=== PATIENT | female | born 1955 | race African-American/Black ===

== ENCOUNTER 2018-07-20 10:09 | Emergency (ER) | payer OTHER ==
[~2018-07-20] VITALS: Ht 167.6 cm; Wt 88.9 kg
[~2018-07-20 10:09] MED LIST: ACET325T9 PO; AMLO10TA6 PO; AMLO5TAB7 PO; ASPI-630 PO; ATOR40TA59 PO; BACI28.43 TP; CARV12.52 PO; CLON0.1T PO; CLON0.2T PO; CLOP75TA PO; GLIP10TA13 PO; HYDR-2758 PO; INSU100I11 SQ; INSU100I13 SQ; INSU100I27 SQ; LACT1CAP19 PO; LEVO250T7 PO; LISI-130 PO; LISI1TAB7 PO; MECL12.52 PO; METF10007 PO; METF500T16 PO; Pantoprazole PO
[2018-07-20] MEDS ORDERED: IV NORMAL SALINE 1000ML BAG 1,000 ML IV SCH (10:49)
[2018-07-20] MEDS ORDERED: MECLIZINE HCL 12.5 MG TABLET. PO ONE (11:00)
[2018-07-20] MEDS ORDERED: ONDANSETRON PF 4 MG/2 ML VIAL. IV ONE (11:00)
--- NOTE | 2018-07-20 11:28 | RAD ---
CT HEAD WO CONTRAST Indication: DIZZINESS Exposure: One or more of the following individualized dose reduction techniques were utilized for this examination: 1. Automated exposure control 2. Adjustment of the mA and/or kV according to patient size 3. Use of iterative reconstruction technique. Comparison: June 13, 2018 Contrast: None FINDINGS: Posterior fossa is unremarkable. No evidence of acute intracranial hemorrhage or abnormal extra-axial fluid collection. No evidence of mass effect or midline shift. Low-attenuation in the white matter bilaterally is again identified. Dilatation of the ventricles and sulci compatible with atrophy. Somewhat greater dilatation of the right frontal horn. These findings are stable since prior exam. Visualized orbits are unremarkable. Visualized paranasal sinuses and mastoids are clear. No acute calvarial abnormality. Impression:Chronic findings as detailed above. Negative for acute intracranial hemorrhage or mass effect. No significant change. Electronically signed by: Parish Yang MD (07/20/2018 11:24 AM) [facility]
--- NOTE | 2018-07-20 11:45 | EKG ---
[facility] [address] [place] [address] Test Date: 2018-07-20 Test Time: 10:44:47 Pat Name: NAKITA SANTILLAN Department: Room: Gender: F Asic Engineer: : 1955 Requested By: CHELSIE HITCHCOCK Order Number: [id number] Reading MD: Maurice Caba MD Measurements Intervals [place] Rate: 98 P: 60 MS: 160 QRS: -15 QRSD: 72 T: 31 QT: 332 QTc: 426 Interpretive Statements SINUS RHYTHM Electronically Signed On 07-20-2018 14:33:17 CERTIFICATION ENGINEER by Maurice Caba MD
[2018-07-20 11:51] LABS: BASO % 1 % (0-3); EOS # 0.1 x10^3/uL (0.0-0.7); EOS % 1 % (0-3); HEMATOCRIT 35.4 % (36.0-47.0); HEMOGLOBIN 11.6 g/dL (12.0-15.5); LYMPH # 1.7 x10^3/uL (1.0-4.8); LYMPH % 24 % (24-48); MEAN CORPUSCULAR HEMOGLOBIN 29 pg (25-35); MEAN CORPUSCULAR HGB CONC 33 g/dL (31-37); MEAN CORPUSCULAR VOLUME 88 fL (79-100); MONO # 0.4 x10^3/uL (0.0-1.1); MONO % 6 % (0-9); NEUT # 4.9 x10^3uL (1.8-7.7); NEUT % 69 % (31-73); PLATELET COUNT 270 x10^3/uL (140-400); RED BLOOD COUNT 4.01 x10^6/uL (3.50-5.40); RED CELL DISTRIBUTION WIDTH 14.4 % (11.5-14.5); WHITE BLOOD COUNT 7.1 x10^3/uL (4.0-11.0)
[2018-07-20 11:58] LABS: CALCIUM 9.2 mg/dL (8.5-10.1); CREATININE 1.4 mg/dL (0.6-1.0); GFR 46.3; POTASSIUM 3.6 mmol/L (3.5-5.1)
[2018-07-20 12:04] LABS: ALBUMIN 3.4 g/dL (3.4-5.0); ALBUMIN/GLOBULIN RATIO 0.7 (1.0-1.7); MAGNESIUM 1.4 mg/dL (1.8-2.4); TOTAL BILIRUBIN 0.6 mg/dL (0.2-1.0); TOTAL PROTEIN 8.6 g/dL (6.4-8.2)
[2018-07-20 14:42] LABS: BILIRUBIN,URINE NEGATIVE (NEG); CLARITY,URINE CLEAR; COLOR,URINE YELLOW; NITRITE,URINE NEGATIVE (NEG); PH,URINE 5.5; PROTEIN,URINE 30 mg/dL (NEG-TRACE)
[2018-07-20] MEDS ORDERED: MAGNESIUM SULFATE 1GM 100 ML IV ONE (14:45)
[2018-07-20 14:54] LABS: BACTERIA,URINE FEW /HPF (0-FEW); RBC,URINE 0 /HPF (0-2); SQUAMOUS EPITHELIAL CELL,UR MOD /LPF
--- NOTE | 2018-07-20 14:57 | PHYS DOC ---
Past Medical History Past Medical History: Diabetes-Type II, Hypertension, Stroke Additional Past Medical Histor: STROKE X3, LEFT SIDED HEMIPARESIS Past Surgical History: Appendectomy, Hysterectomy Alcohol Use: None Drug Use: None Adult General Chief Complaint Chief Complaint: DIZZY/LIGHT HEADED [facility] HPI Patient is a 63-year-old female who presents with complaint of dizziness that had started a couple of days ago that she states at times feels like things are spinning and at times she just feels off balance. She denies any headache or visual changes. She does indicate that she has had some nausea associated with the dizziness. She denies any chest pain or shortness of breath. She also denies any abdominal pain. Patient states that symptoms are worsened with changing positions and turning her head quickly. Review of Systems Review of Systems Constitutional: Denies fever or chills [] Eyes: Denies change in visual acuity, redness, or eye pain [] Respiratory: Denies cough or shortness of breath [] Cardiovascular: No additional information not addressed in HPI [] GI: Denies abdominal pain. Positive nausea. [] Neurologic: Denies headache, focal weakness or sensory changes. Complains of dizziness. [] All other systems were reviewed and found to be within normal limits, except as documented in this note. Current Medications Current Medications Current Medications Medications (Trade) Dose Ordered Sig/[facility] Start Time Stop Time Status Last Admin Dose Admin Magnesium Sulfate/ Dextrose 100 ml @ 100 mls/hr 1X ONCE 07/20/18 14:45 07/20/18 15:44 Meclizine HCl (Antivert) 25 mg 1X ONCE 07/20/18 11:00 07/20/18 11:01 DC 07/20/18 11:57 25 MG Ondansetron HCl (Zofran) 4 mg 1X ONCE 07/20/18 11:00 07/20/18 11:01 DC 07/20/18 11:57 4 MG Sodium Chloride 1,000 ml @ 100 mls/hr Q10H 07/20/18 10:49 07/20/18 20:48 07/20/18 11:58 100 MLS/HR Allergies Allergies Allergies Coded Allergies Type Severity Reaction Last Updated Verified No Known Medication Allergies Allergy Unknown 11/05/15 Yes codeine Adverse Reaction Intermediate itching 11/03/15 Yes Physical Exam Physical Exam Constitutional: Well developed, well nourished, no acute distress, non-toxic appearance. [] HENT: Normocephalic, atraumatic, bilateral external ears normal, oropharynx moist, no oral exudates, nose normal. [] Eyes: PERRLA, EOMI, conjunctiva normal, no discharge. [] Neck: Normal range of motion, no tenderness, supple, no stridor. [] Cardiovascular:Heart rate regular rhythm, no murmur [] Lungs & Thorax: Bilateral breath sounds clear to auscultation [] Abdomen: Bowel sounds normal, soft, no tenderness, no masses, no pulsatile masses. [] Skin: Warm, dry, no erythema, no rash. [] Back: No tenderness, no CVA tenderness. [] Extremities: No tenderness, no cyanosis, no clubbing, ROM intact, no edema. [] Neurologic: Alert and oriented X 3, normal motor function, normal sensory function, no focal deficits noted. [] Psychologic: Affect normal, judgement normal, mood normal. [] Current Patient Data Vital Signs Vital Signs Date Time Temp Pulse Resp B/P (MAP) Pulse Ox O2 Delivery O2 Flow Rate FiO2 07/20/18 12:44 98 97 07/20/18 11:03 98.6 16 163/78 (106) Room Air 98.6 Lab Values Laboratory Tests Test 07/20/18 10:21 07/20/18 11:40 Urine Collection Type Unknown Urine Color Yellow Urine Clarity Clear Urine pH 5.5 Urine Specific [place] 1.015 Urine Protein 30 mg/dL (NEG-TRACE) Urine Glucose (UA) 100 mg/dL (NEG) Urine Ketones (Stick) Negative mg/dL (NEG) Urine Blood Negative (NEG) Urine Nitrite Negative (NEG) Urine Bilirubin Negative (NEG) Urine Urobilinogen Dipstick 1.0 mg/dL (0.2 mg/dL) Urine Leukocyte Esterase Negative (NEG) Urine RBC 0 /HPF (0-2) Urine WBC 1-4 /HPF (0-4) Urine Squamous Epithelial Cells Mod /LPF Urine Bacteria Few /HPF (0-FEW) Urine Mucus Mod /LPF White Blood Count 7.1 x10^3/uL (4.0-11.0) Red Blood Count 4.01 x10^6/uL (3.50-5.40) Hemoglobin 11.6 g/dL (12.0-15.5) L Hematocrit 35.4 % (36.0-47.0) L Mean Corpuscular Volume 88 fL (79-100) Mean Corpuscular Hemoglobin 29 pg (25-35) Mean Corpuscular Hemoglobin Concent 33 g/dL (31-37) Red Cell Distribution Width 14.4 % (11.5-14.5) Platelet Count 270 x10^3/uL (140-400) Neutrophils (%) (Auto) 69 % (31-73) Lymphocytes (%) (Auto) 24 % (24-48) Monocytes (%) (Auto) 6 % (0-9) Eosinophils (%) (Auto) 1 % (0-3) Basophils (%) (Auto) 1 % (0-3) Neutrophils # (Auto) 4.9 x10^3uL (1.8-7.7) Lymphocytes # (Auto) 1.7 x10^3/uL (1.0-4.8) Monocytes # (Auto) 0.4 x10^3/uL (0.0-1.1) Eosinophils # (Auto) 0.1 x10^3/uL (0.0-0.7) Basophils # (Auto) 0.0 x10^3/uL (0.0-0.2) Sodium Level 140 mmol/L (136-145) Potassium Level 3.6 mmol/L (3.5-5.1) Chloride Level 101 mmol/L (98-107) Carbon Dioxide Level 28 mmol/L (21-32) Anion Gap 11 (6-14) Blood Urea Nitrogen 27 mg/dL (7-20) H Creatinine 1.4 mg/dL (0.6-1.0) H Estimated GFR (Cockcroft-Gault) 46.3 BUN/Creatinine Ratio 19 (6-20) Glucose Level 246 mg/dL (70-99) H Calcium Level 9.2 mg/dL (8.5-10.1) Magnesium Level 1.4 mg/dL (1.8-2.4) L Total Bilirubin 0.6 mg/dL (0.2-1.0) Aspartate Amino Transferase (AST) 12 U/L (15-37) L Alanine Aminotransferase (ALT) 12 U/L (14-59) L Alkaline Phosphatase 81 U/L (46-116) Total Protein 8.6 g/dL (6.4-8.2) H Albumin 3.4 g/dL (3.4-5.0) Albumin/Globulin Ratio 0.7 (1.0-1.7) L Laboratory Tests 07/20/18 11:40 Laboratory Tests 07/20/18 11:40 EKG EKG [] Interpretation Time: EKG demonstrates normal sinus rhythm with rate of 98. Radiology/Procedures Radiology/Procedures [] Impressions: PROCEDURE: CT HEAD WO CONTRAST CT HEAD WO CONTRAST Indication: DIZZINESS Exposure: One or more of the following individualized dose reduction techniques were utilized for this examination: 1. Automated exposure control 2. Adjustment of the mA and/or kV according to patient size 3. Use of iterative reconstruction technique. Comparison: June 13, 2018 Contrast: None FINDINGS: Posterior fossa is unremarkable. No evidence of acute intracranial hemorrhage or abnormal extra-axial fluid collection. No evidence of mass effect or midline shift. Low-attenuation in the white matter bilaterally is again identified. Dilatation of the ventricles and sulci compatible with atrophy. Somewhat greater dilatation of the right frontal horn. These findings are stable since prior exam. Visualized orbits are unremarkable. Visualized paranasal sinuses and mastoids are clear. No acute calvarial abnormality. Impression:Chronic findings as detailed above. Negative for acute intracranial hemorrhage or mass effect. No significant change. Electronically signed by: Joesph Yang MD (07/20/2018 11:24 AM) Course & Med Decision Making Course & Med Decision Making Pertinent Labs and Imaging studies reviewed. (See chart for details) [] Dragon Disclaimer Dragon Disclaimer This electronic medical record was generated, in whole or in part, using a voice recognition dictation system. Departure Departure Impression: Primary Impression: Benign positional vertigo Additional Impression: Hypomagnesemia Disposition: 01 HOME, SELF-CARE Condition: STABLE Referrals: JOESPH CORONEL MD (PCP) Patient Instructions: Benign Positional Vertigo, Hypomagnesemia Scripts Meclizine Hcl (MECLIZINE HCL) 25 Mg Tablet 25 MG PO PRN TID PRN for DIZZINESS, #30 dizziness Prov: CHELSIE HITCHCOCK Jr. DO 07/20/18 Ondansetron Hcl (ZOFRAN) 4 Mg Tablet 4 MG PO PRN TID PRN for NAUSEA, #15 nausea/vomiting Prov: CHELSIE HITCHCOCK Jr. DO 07/20/18 Problem Qualifiers Primary Impression: Benign positional vertigo Laterality: unspecified laterality Qualified Codes: H81.10 - Benign paroxysmal vertigo, unspecified ear CHELSIE HITCHCOCK Jr. DO Jul 20, 2018 14:57
[2018-07-20 15:00] VITALS: BP 180/79
[2018-07-20] MEDS ORDERED: MECL25TA3 PO (15:14)
[2018-07-20] MEDS ORDERED: ONDA4TAB7 PO (15:14)
== END 2018-07-20 15:25 | disposition home or self-care (01) ==
LOC: ER 10:09
DX: H81.10 Benign paroxysmal vertigo, unspecified ear (principal); E83.42 Hypomagnesemia; E11.9 Type 2 diabetes mellitus without complications; I10 Essential (primary) hypertension; I69.959 Hemiplegia and hemiparesis following unspecified cerebrovascular disease affecting unspecified side; Z88.5 Allergy status to narcotic agent
CPT/HCPCS: 36415; 70450; 80053; 81001; 83735; 85025; 93005; 96361; 96365; 96375; 99284; J2405; J3475; J7030; J8597

== ENCOUNTER → 2018-08-19 | Outpatient (CLI) | payer OTHER ==
[2018-07-20 15:00] VITALS: BP 180/79
[~2018-08-19] MED LIST changes: +CARV12.511 PO; -CARV12.52 PO; -HYDR-2758 PO; +HYDR-2761 PO; +MECL25TA3 PO; +ONDA4TAB7 PO
--- NOTE | 2018-08-19 17:36 | RAD ---
KNEE RIGHT 2V History: RT KNEE PAIN X 2 MONTHS. NO KNOWN INJURY. Comparison: None are available No evidence of an acute fracture. No bone destruction. Joint spaces are grossly intact. There is some hypertrophy of the tibial tubercle appears chronic. Small cortical thickening or hypertrophy at the medial proximal tibia appears chronic and benign. Vascular calcifications. Small joint effusion. IMPRESSION: No acute bone abnormality. Small joint effusion. Electronically signed by: Parish Yang MD (08/19/2018 5:32 PM) [facility]
--- NOTE | 2018-08-21 10:34 | RAD ---
DATE: 08/19/2018 3:30 PM EXAM: DIGITAL SCREEN BILAT W/CAD HISTORY: routine screening evaluation. -New baseline COMPARISON: No prior imaging is available for comparison. Bilateral full field craniocaudal and mediolateral oblique images were obtained using digital technique. This study was interpreted with the benefit of Computerized Aided Detection (CAD ). Breast Density: The breast parenchyma shows scattered fibroglandular densities. Breast parenchyma level B. FINDINGS: Benign calcifications are present. No suspicious masses, microcalcifications or architectural distortion is present to suggest malignancy in either breast. The visualized axillae are unremarkable. IMPRESSION: No mammographic evidence of malignancy. BI-RADS CATEGORY: 2 BENIGN FINDING(S) RECOMMENDED FOLLOW-UP: 12M 12 MONTH FOLLOW-UP Annual screening mammography is recommended, unless clinically indicated sooner based on symptoms or change in physical exam. PQRS compliance statement: Patient information was entered into a reminder system with a target due date 08/19/2019 for the next mammogram. Mammography is a sensitive method for finding small breast cancers, but it does not detect them all and is not a substitute for careful clinical examination. A negative mammogram does not negate a clinically suspicious finding and should not result in delay in biopsying a clinically suspicious abnormality. "Our facility is accredited by the [employer] Mammography Program." MTDD
== END | disposition home or self-care (01) ==
LOC: MAMMO 13:29
PROVIDERS: ATTEND Family Medicine
DX: Z12.31 Encounter for screening mammogram for malignant neoplasm of breast (principal); M25.461 Effusion, right knee
CPT/HCPCS: 73560; 77067

== ENCOUNTER → 2019-04-13 | Outpatient (CLI) | payer OTHER ==
[~2019-04-13] MED LIST changes: -AMLO10TA6 PO; +AMLO10TA8 PO; +AMLO5TAB10 PO; -AMLO5TAB7 PO
--- NOTE | 2019-04-13 16:59 | RAD ---
Clinical indications: Malignant hypertension. Renal artery stenosis. Evaluation for renal scarring/atrophy. Chronic kidney disease stage III. . Findings: Duplex sonography including blandon scale and color flow and spectral waveform analysis of the renal arteries and veins was performed. The peak systolic flow velocity of the right main renal artery is: Proximal: Not visualized due to overlying bowel gas. Mid aspect: 49 cm/sec Distal: 84 cm/sec The peak systolic flow velocity of the left main renal artery is: Proximal: Not visualized due to overlying bowel gas. Midaspect: Not visualized due to overlying bowel gas. Distal: 106 cm/sec The peak systolic flow velocity of the abdominal aorta is 106 cm/sec. Therefore, the renal artery/aortic ratio on the right side is 0.78. Therefore, the renal artery/aortic ratio on the left side is 0.99. Color-Doppler flow is identified within the right main renal vein. Color-Doppler flow is identified within the left main renal vein. The longitudinal dimension of the right kidney is 10.2 cm. No hydronephrosis is seen. The right kidney is difficult to visualize due to patient's body habitus. There is a 8 mm stone within the mid aspect of the right kidney. The longitudinal dimension of the left kidney is 10.2 cm. No hydronephrosis is seen. The left kidney is difficult to visualize due to patient's body habitus. The average resistive index of the right kidney is 0.81. The average resistive index of the left kidney is 0.82. Urinary bladder is mildly distended and no intraluminal echodensities or masses are seen. Impression: 1. Difficulty visualizing the entire renal artery on both sides. No hemodynamically significant plaque formation or flow-limiting stenosis is seen within the areas that are visualized on either side. 2. No significant renal atrophy is seen on either side. No hydronephrosis. 3. Right renal stone. Electronically signed by: Al Menard MD (04/13/2019 4:56 PM) [place] [id number]
== END | disposition home or self-care (01) ==
LOC: US 15:25
PROVIDERS: ATTEND Internal Medicine Nephrology
DX: N20.0 Calculus of kidney (principal); I70.1 Atherosclerosis of renal artery; N32.89 Other specified disorders of bladder; I12.9 Hypertensive chronic kidney disease with stage 1 through stage 4 chronic kidney disease, or unspecified chronic kidney disease; N18.3 Chronic kidney disease, stage 3 (moderate)
CPT/HCPCS: 76770

== ENCOUNTER → 2019-06-14 | Day surgery (SDC) | payer OTHER ==
[~2019-06-14] MED LIST changes: +IV RINGERS,LACTATED 1000ML 1,000 ML IV ONE; +LIDOCAINE 2% PF 5 ML VIAL. ONE; +LISI1TAB20 PO; -LISI1TAB7 PO; +PROPOFOL 40 ML IV ONE
--- NOTE | 2019-06-14 14:06 | PDOC4 ---
PROCEDURE Procedure Colonoscopy/cold snare polypectomy Indication: Screening Meds: per anesthesia Findings: EMILY: normal --'Scope advanced to cecum. Mucosa normal throughout. Scattered diverticula, sigmoid. --8-10mm pedunculated polyp, descending, removed with cold snare. Internal hemorrhoids on retroflex. Exam otherwise normal. Bunny. well. IMP: Solitary polyp Diverticulosis Internal hemorrhoids. REC: Await path. Resume home meds and diet. F/u in 2 weeks. Repeat colonoscopy pending path. JOESPH SANTILLAN MD Jun 14, 2019 14:06
[2019-06-14 14:38] VITALS: BP 174/86
--- NOTE | 2019-06-15 11:07 | PATHOLOGY ---
[facility] Accession Number: [id number] . 01 Material submitted: . colon - DESCENDING COLON POLYP. Modifiers: descending . 01 Clinical history: . Screening . 02 Diagnosis: Colonic mucosa "descending colon polyp biopsy": - Tubular adenoma. - There is no evidence of high-grade dysplasia or malignancy. (SHA:ned; 06/15/2019) QMS 06/15/2019 0931 Local . 02 Electronically signed: . Mark Stanley MD, Pathologist NPI- [id number] . 01 Gross description: . Received in formalin labeled "iKshore Vickers, descending colon polyp," is a single segment of landeros soft tissue measuring 0.7 cm in maximum dimension. The specimen is entirely submitted in cassette A1. (TSD; 06/14/2019) TOB/TOB 06/14/20191957 Local . 02 Pathologist provided ICD-10: D12.4 . 02 CPT . 543648 Specimen Comment: A courtesy copy of this report has been sent to Specimen Comment: [phone], . Specimen Comment: Report sent to / DR AYOUB Specimen Comment: A duplicate report has been generated due to demographic updates. Performed at: 01 [facility] [place] [address], [place], [place] [id number] MD Von Bingham MD Phone: [phone] Performed at: 02 [facility] [address] [place], [place] [id number] MD Josesito Lewis MD Phone: [phone]
== END ==
LOC: ENDOS 12:23
PROVIDERS: ATTEND Internal Medicine Gastroenterology
DX: Z12.11 Encounter for screening for malignant neoplasm of colon (principal); D12.4 Benign neoplasm of descending colon; K57.30 Diverticulosis of large intestine without perforation or abscess without bleeding; K64.0 First degree hemorrhoids; E11.9 Type 2 diabetes mellitus without complications; I12.9 Hypertensive chronic kidney disease with stage 1 through stage 4 chronic kidney disease, or unspecified chronic kidney disease; E11.22 Type 2 diabetes mellitus with diabetic chronic kidney disease; N18.9 Chronic kidney disease, unspecified; Z86.73 Personal history of transient ischemic attack (TIA), and cerebral infarction without residual deficits; Z87.39 Personal history of other diseases of the musculoskeletal system and connective tissue; Z79.82 Long term (current) use of aspirin; Z90.710 Acquired absence of both cervix and uterus; Z98.890 Other specified postprocedural states; Z79.84 Long term (current) use of oral hypoglycemic drugs
CPT/HCPCS: 45385; 82962; 88305; J2001; J2704

== ENCOUNTER → 2020-05-01 | Outpatient (CLI) | payer OTHER ==
[2019-06-14 14:38] VITALS: BP 174/86
[~2020-05-01] MED LIST changes: -IV RINGERS,LACTATED 1000ML 1,000 ML IV ONE; -LIDOCAINE 2% PF 5 ML VIAL. ONE; +MECL-75 PO; -MECL12.52 PO; +MECL12.573 PO; -MECL25TA3 PO; -PROPOFOL 40 ML IV ONE
--- NOTE | 2020-05-01 16:14 | CARD ---
MR#: [id number] Date of Study: 05/01/2020 Ordering Physician: NADINE AGUILAR, Referring Physician: NADINE AGUILAR Tech: Sabina Basurto RDCS APPROVED REPORT EXAM: Two-dimensional and M-mode echocardiogram with Doppler and color Doppler. Other Information Quality : Good INDICATION Murmur 2D DIMENSIONS RVDd2.3 (2.9-3.5cm)Left Atrium(2D)3.0 (1.6-4.0cm) IVSd1.1 (0.7-1.1cm)Aortic Root(2D)2.9 (2.0-3.7cm) LVDd4.0 (3.9-5.9cm)LVOT Diameter2.3 (1.8-2.4cm) PWd1.1 (0.7-1.1cm)LVDs1.4 (2.5-4.0cm) FS (%) 30.0 %SV67.1 ml LVEF(%)60.0 (>50%) Aortic Valve AoV Peak Octavio.145.3cm/sAoV VTI23.4cm AO Peak GR.8.4mmHgLVOT Peak Octavio.131.9cm/s AO Mean GR.5mmHgAVA (VMAX)3.65cm2 ETTA (VTI)3.70cm2 Mitral Valve MV E Uzaacqot54.7cm/sMV DECEL TMDI576dp MV A Uqdaawxx569.1cm/sE/A Ratio0.5 Tricuspid Valve TR P. Pzeicbmj885pf/sRAP NWIGKUKN7qoCn TR Peak Gr.65tdAbDWLS41ioXl Pulmonary Vein S1 Owumiqmb92.2cm/sD2 Yziusevh19.1cm/s LEFT VENTRICLE The left ventricle is normal size. There is mild concentric left ventricular hypertrophy. The left ve ntricular systolic function is normal and the ejection fraction is within normal range. The Ejection Fraction is 60-65%. There is normal LV segmental wall motion. Transmitral Doppler flow pattern is Gra de I-abnormal relaxation pattern. RIGHT VENTRICLE The right ventricle is normal size. The right ventricular systolic function is normal. ATRIA The left atrium size is normal. The right atrium size is normal. The interatrial septum is intact wit h no evidence for an atrial septal defect or patent foramen ovale as noted on 2-D or Doppler imaging. AORTIC VALVE The aortic valve is calcified but opens well. Doppler and Color Flow revealed no significant aortic r egurgitation. There is no significant aortic valvular stenosis. MITRAL VALVE The mitral valve is normal in structure and function. There is no evidence of mitral valve prolapse. There is no mitral valve stenosis. Doppler and Color Flow revealed trace mitral valve regurgitation. TRICUSPID VALVE The tricuspid valve is normal in structure and function. Doppler and Color Flow revealed trace tricus pid regurgitation. The PA pressure was estimated at 23 mmHg. There is no tricuspid valve stenosis. PULMONIC VALVE The pulmonic valve is not well visualized. Doppler and Color Flow revealed no pulmonic valvular regur gitation. There is no pulmonic valvular stenosis. GREAT VESSELS The aortic root is not well visualized. The ascending aorta is normal in size. The IVC is normal in s ize and collapses >50% with inspiration. PERICARDIAL EFFUSION There is no evidence of significant pericardial effusion. Critical Notification Critical Value: No <Conclusion> The left ventricle is normal size. The left ventricular systolic function is normal and the ejection fraction is within normal range. The Ejection Fraction is 60-65%. There is mild concentric left ventricular hypertrophy. Doppler and Color Flow revealed no significant aortic regurgitation. There is no significant aortic valvular stenosis. Doppler and Color Flow revealed trace mitral valve regurgitation. Doppler and Color Flow revealed trace tricuspid regurgitation. The PA pressure was estimated at 23 mmHg. Signed by : Carmine Hanson MD Electronically Approved : 05/01/2020 16:14:16
== END | disposition home or self-care (01) ==
LOC: ECHO 12:51
PROVIDERS: ATTEND Internal Medicine Cardiovascular Disease
DX: I35.1 Nonrheumatic aortic (valve) insufficiency (principal); I51.7 Cardiomegaly
CPT/HCPCS: 93306

== ENCOUNTER → 2020-06-22 | Outpatient (CLI) | payer OTHER ==
[2019-06-14 14:38] VITALS: BP 174/86
[~2020-06-22] MED LIST changes: +AMLO-186 PO; +AMLO-187 PO; -AMLO10TA8 PO; -AMLO5TAB10 PO
--- NOTE | 2020-06-22 16:22 | RAD ---
EXAM: BONE SURVEY METASTATIC COMPL 06/22/2020 12:00 AM CLINICAL INDICATION:MGUS COMPARISON:None TECHNIQUE:Complete skeletal survey FINDINGS: Skull: No lytic lesions CHEST: No lytic lesions. The heart and lungs are normal. Cervical spine: No lytic lesions. Mild degenerative disc disease. Thoracic spine: No lytic lesions. Mild degenerative disc disease. Lumbar spine: No lytic lesions. Mild degenerative disc disease. Pelvis: No lytic lesion. Moderate osteoarthrosis of the hips. Right femur, tibia, and fibula: No lytic lesions. Left femur, tibia and fibula: There is a 3.4 x 2.0 cm sclerotic and lucent lesion in the distal tibia, eccentric in location. 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 No definite lytic lesions to suggest multiple myeloma. Right humerus, radius and ulna: No lytic lesions. Mild acromioclavicular and glenohumeral degenerative joint disease. Left humerus, radius and ulna: No lytic lesions. Mild acromioclavicular degenerative joint disease. IMPRESSION: 1. 3.4 cm mixed sclerotic and lucent lesion in the left distal tibia. 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 2. No definite lytic lesions to suggest multiple myeloma. Electronically signed by: Caroline Remy MD (06/22/2020 4:19 PM) [id number]
== END ==
LOC: RAD 10:45
DX: C90.00 Multiple myeloma not having achieved remission (principal); R76.8 Other specified abnormal immunological findings in serum; M50.30 Other cervical disc degeneration, unspecified cervical region; M51.34 Other intervertebral disc degeneration, thoracic region; M51.36 Other intervertebral disc degeneration, lumbar region; M16.0 Bilateral primary osteoarthritis of hip; M19.012 Primary osteoarthritis, left shoulder; M19.011 Primary osteoarthritis, right shoulder
CPT/HCPCS: 77075